=== PATIENT | female | born 1975 | race Caucasian/White ===

== ENCOUNTER 2016-05-16 09:26 | Emergency (ER) | payer BC ==
[2016-05-16 09:48] VITALS: BP 131/59
--- NOTE | 2016-05-16 10:18 | UC ---
Knee Pain HPI - HPI Summary HPI Summary: twisted right knee yesterday painful and swelling - History of Current Complaint Chief Complaint: UCLowerExtremity Stated Complaint: RIGHT KNEE INJURY Time Seen by Provider: 05/16/16 10:07 Hx Obtained From: Patient Hx Last Menstrual Period: 05/11/16 ?: No Onset/Duration: Sudden Onset, Lasting Days - 1, Still Present Severity Initially: Moderate Severity Currently: Mild Location Of Injury: 4 Pain Scale Used: 0-10 Numeric Character: Aching Aggravating Factor(s): Nothing - kneeling Alleviating Factor(s): Cold, OTC Meds Associated Signs And Symptoms: Positive: Negative Able to Bear Weight: Yes - Allergies/Home Medications Allergies/Adverse Reactions: Allergies Allergy/AdvReac Type Severity Reaction Status Date / Time Diphenhydramine Allergy Severe throat Verified 05/16/16 09:48 [From Benadryl] swelling PMH/Surg Hx/FS Hx/Imm Hx Previously Healthy: Yes - Surgical History Surgical History: Yes Surgery Procedure, Year, and Place: tonsillectomy 1992. sinus surgery x2 2004 and 2007. essure 05/2012 - Family History Known Family History: Positive: None Family History: no reported cardiovascular issues in family lineage - Social History Occupation: Employed Full-time Lives: With Family Alcohol Use: Rare Substance Use Type: None Smoking Status (MU): Never Smoked Tobacco Review of Systems Constitutional: Negative Skin: Negative Eyes: Negative ENT: Negative Respiratory: Negative Cardiovascular: Negative Gastrointestinal: Negative Genitourinary: Negative Motor: Negative Neurovascular: Negative Musculoskeletal: Arthralgia - right knee pain Neurological: Negative Psychological: Negative All Other Systems Reviewed And Are Negative: Yes Physical Exam Triage Information Reviewed: Yes Appearance: Well-Appearing, No Pain Distress, Well-Nourished Vital Signs: Initial Vital Signs Temp 98.0 F 05/16/16 09:46 Pulse 78 05/16/16 09:46 Resp 14 05/16/16 09:46 BP 131/59 05/16/16 09:46 Pulse Ox 100 05/16/16 09:46 Vital Signs Reviewed: Yes Eye Exam: Normal Eyes: Positive: Conjunctiva Clear ENT Exam: Normal ENT: Positive: Normal ENT inspection, Hearing grossly normal, TMs normal. Negative: Nasal congestion, Nasal drainage, Trismus, Muffled/hoarse voice Dental Exam: Normal Neck exam: Normal Neck: Positive: Supple, Nontender, No Lymphadenopathy Respiratory Exam: Normal Respiratory: Positive: Chest non-tender, Lungs clear, Normal breath sounds, No respiratory distress, No accessory muscle use Cardiovascular Exam: Normal Cardiovascular: Positive: RRR, No Murmur, Pulses Normal, Brisk Capillary Refill Abdominal Exam: Normal Musculoskeletal Exam: Normal Musculoskeletal: Positive: Strength Intact, ROM Intact, No Edema Neurological Exam: Normal Neurological: Positive: Alert, Muscle Tone Normal Psychological Exam: Normal Skin Exam: Normal Diagnostics - Radiology No standard instances Xray Interpretation: No Acute Changes Radiology Interpretation Completed By: Radiologist Knee Pain Course/Dx - Course Course Of Treatment: silvia knee immoblizer,rice,ibuprofen, Follow with Dr. Bear - Differential Dx/Diagnosis Differential Diagnosis/HQI/PQRI: Internal Derangement Of Knee, Sprain, Strain Provider Diagnoses: Right knee Strain Discharge - Discharge Plan Condition: Stable Disposition: HOME Patient Education Materials: Posterior Cruciate Ligament Injury (ED), Knee Immobilizer (ED), RICE Therapy (ED) Referrals: Christopher Womack MD [Primary Care Provider] - Stephanie Bear MD [Medical Doctor] - 5 Days
--- NOTE | 2016-05-16 10:38 | RAD ---
INDICATION: Right knee pain COMPARISON: None TECHNIQUE: AP, lateral, tunnel, and sunrise views were obtained. FINDINGS: The bony structures, joint spaces, and soft tissues are normal for age. IMPRESSION: NEGATIVE EXAMINATION.
== END 2016-05-16 11:20 | disposition home or self-care (01) ==
LOC: UCCORT 09:26
DX: S86.911A Strain of unspecified muscle(s) and tendon(s) at lower leg level, right leg, initial encounter (principal); X50.1XXA Overexertion from prolonged static or awkward postures, initial encounter; Y93.9 Activity, unspecified; Y92.9 Unspecified place or not applicable; Z88.8 Allergy status to other drugs, medicaments and biological substances
CPT/HCPCS: 99212; G0463

== ENCOUNTER 2016-07-28 18:32 | Emergency (ER) | payer BC ==
[2016-07-28 18:44] VITALS: BP 123/80
--- NOTE | 2016-07-28 19:14 | UC ---
Throat Pain/Nasal Mikhail HPI - HPI Summary HPI Summary: 9 days ago pt was eating a meal and starting choking group home through a bite of food. Describes it like when food or drink goes down "the wrong pipe," did not need a Heimlich maneuver and was able to make noise through the event. Reports about 5 minutes of continuous coughing afterward and a persistent sensation of swelling and a lump in her throat with swallowing or breathing. Has had a very frequent dry cough since the event. The day after the choking incident pt felt "feverish" and throat was sore, went to see PCP the next day and was placed on abx while awaiting a TBS. Is still taking amox, sx not improving. States she is able to eat and drink successfully and is not having trouble breathing aside from the feeling of a lump in her throat. - History of Current Complaint Chief Complaint: UCGeneralIllness Stated Complaint: SCRATCHY THROAT Time Seen by Provider: 07/28/16 18:47 Hx Obtained From: Patient Hx Last Menstrual Period: 07/28/16 ?: No Onset/Duration: Sudden Onset Severity: Mild Cough: Nonproductive Associated Signs & Symptoms: Positive: FB Sensation. Negative: Wheezing, Sinus Discomfort, Nasal Discharge, Fever, Vomiting - Allergies/Home Medications Allergies/Adverse Reactions: Allergies Allergy/AdvReac Type Severity Reaction Status Date / Time Diphenhydramine Allergy Severe throat Verified 07/28/16 18:44 [From Benadryl] swelling PMH/Surg Hx/FS Hx/Imm Hx Previously Healthy: Yes - Surgical History Surgical History: Yes Surgery Procedure, Year, and Place: tonsillectomy 1992. sinus surgery x2 2004 and 2007. essure 05/2012 - Family History Known Family History: Positive: None Family History: no reported cardiovascular issues in family lineage - Social History Lives: With Family Alcohol Use: Rare Substance Use Type: None Smoking Status (MU): Never Smoked Tobacco Review of Systems Constitutional: Negative Skin: Negative Eyes: Negative ENT: Sore Throat Respiratory: Negative Cardiovascular: Negative Gastrointestinal: Negative Genitourinary: Negative Motor: Negative Neurovascular: Negative Musculoskeletal: Negative Neurological: Negative Psychological: Negative All Other Systems Reviewed And Are Negative: Yes Physical Exam Triage Information Reviewed: Yes Appearance: Well-Appearing, No Pain Distress, Well-Nourished Vital Signs: Initial Vital Signs Temp 99.4 F 07/28/16 18:39 Pulse 77 07/28/16 18:39 Resp 16 07/28/16 18:39 BP 123/80 07/28/16 18:39 Pulse Ox 100 07/28/16 18:39 Vital Signs Reviewed: Yes Eye Exam: Normal Eyes: Positive: Conjunctiva Clear ENT: Positive: Normal ENT inspection, Hearing grossly normal, Pharynx normal, TMs normal. Negative: Tonsillar swelling, Tonsillar exudate Dental Exam: Normal Neck exam: Normal Neck: Positive: Supple, Nontender, No Lymphadenopathy Respiratory Exam: Normal Respiratory: Positive: Chest non-tender, Lungs clear, Normal breath sounds, No respiratory distress, No accessory muscle use Cardiovascular Exam: Normal Cardiovascular: Positive: RRR, No Murmur Musculoskeletal Exam: Normal Neurological Exam: Normal Neurological: Positive: Alert Psychological Exam: Normal Skin Exam: Normal Throat Pain/Nasal Course/Dx - Differential Dx/Diagnosis Provider Diagnoses: inflammation of upper airway and upper esophagus. globus sensation. elevated blood pressure due to discomfort Discharge - Discharge Plan Condition: Stable Disposition: HOME Prescriptions: Fluticasone HFA 110 mcg(NF) [Flovent HFA 110 mcg(NF)] 1 puff INH BID #1 mdi predniSONE TAB* [Deltasone TAB*] 40 mg PO DAILY #6 tab Patient Education Materials: Acute Cough (ED) Referrals: Christopher Womack MD [Primary Care Provider] - Additional Instructions: As we discussed, your coughing episode clearly caused some swelling and irritation in the top of your airway. Your ongoing coughing and feeling of swelling should go down within a couple days with steroid treatment. If you are not seeing improvement within about a week, please see your primary care office again. If you have actual problems with swallowing (such as choking, vomiting, unable to get food/liquids down) or breathing (like you need to be in a certain position in order to get air in and out), please go to the nearest emergency department. You can stop your antibiotic right now. If your symptoms resolve with medication, you should continue the inhaler for about a week after you feel better, then you can stop.
== END 2016-07-28 19:18 | disposition home or self-care (01) ==
LOC: UCCORT 18:32
DX: K20.9 Esophagitis, unspecified (principal); F45.8 Other somatoform disorders; R03.0 Elevated blood-pressure reading, without diagnosis of hypertension
CPT/HCPCS: 99212; G0463

== ENCOUNTER → 2017-05-25 09:20 | Day surgery (SDC) | payer BC ==
[~2017-05-25 09:20] MED LIST: Buffered Lidocaine 0.9% SYRIN* 5 ML/SYR SYRINGE INTRADERM ONE; Buffered Lidocaine 0.9% SYRIN* 5 ML/SYR SYRINGE ONE; Bupivacaine 0.5%* 50 ML VIAL ONE; Dexamethasone IV* 4 MG/ML 1 ML (4 MG) ONE; Famotidine TAB* 20 MG ONE; Famotidine TAB* 20 MG PO ONE; Ketorolac INJ* 30 MG/ML 1 ML VIAL ONE; Lidocaine 2% PF * 5 ML VIAL ONE; Lidocaine 2% PF* 10 ML AMP ONE; Metoclopramide TAB* 10 MG ONE; Metoclopramide TAB* 10 MG PO ONE; Midazolam* 1 MG/ML 2 ML VIAL (2 MG) ONE; Midazolam* 1 MG/ML 5 ML VIAL (5 MG) ONE; Naloxone* 0.4 MG/ML 1 ML VIAL IV PRN; Ondansetron INJ* 2 MG/ML VIAL IV PRN; Ondansetron INJ* 2 MG/ML VIAL ONE; Propofol* 10 MG/ML 20 ML BTL IV PUSH ONE; ceFAZolin 2 GM PREMIX (*) 2 GM/50 ML BAG IVPB ONE; fentaNYL* 50 MCG/ML 2 ML VIAL (100 MCG VIAL) IV PRN; fentaNYL* 50 MCG/ML 2 ML VIAL (100 MCG VIAL) ONE; oxyCODONE/Acetamin 5/325 MG* TAB PO PRN
[2017-05-25 13:15] VITALS: BP 115/78
--- NOTE | 2017-05-25 19:22 | RAD ---
INDICATION: Left foot bunion repair. COMPARISON: Comparison is made with a prior x-ray study of the left foot from March 11, 2017. TECHNIQUE: 1.27 of intermittent fluoroscopic guidance were provided and a single spot film of the left foot was obtained in the operating room. FINDINGS: There appears be a soft tissue surgical defect adjacent to the distal first metatarsal. There are small metallic linear densities which project adjacent to the distal first and second metatarsals. IMPRESSION: INTRAOPERATIVE CONTROL FILMS. CPT II Codes: G9500
--- NOTE | 2017-05-26 02:31 | OP ---
DATE OF OPERATION: 05/25/17 - [facility] DATE OF : 73 SURGEON: Casey Sin MD COMMERCIAL DIVER: Jael Stanley PA-C PRE-OP DIAGNOSIS: Left hallux valgus. POST-OP DIAGNOSIS: Left hallux valgus. OPERATIVE PROCEDURE: Repair of left hallux valgus with TightRope first and second metatarsal and modified Sanchez. DESCRIPTION OF PROCEDURE: Patient was taken to the operating room where longitudinal incision was made in the first and second dorsal webspace. The adductor tendon was reflected away from the lateral border of the sesamoid. Transverse metatarsal ligament also divided under direct vision. Small capsulotomy made above the sesamoid between that and the metatarsal. We then made a longitudinal medial incision over the medial eminence with dorsal and plantar flaps developed. Transverse capsulotomy made at the level of the joint and then extended proximally over the dorsum. This was reflected plantarward to allow visualization of the medial eminence, which was removed with microsagittal saw. We then passed a TightRope from the secondary metatarsal to the first metatarsal with the FiberWire suture. Stationary button was placed laterally and tied over tension at the medial aspect of the first metatarsal. We then resected the redundant capsule medially and closing the capsule with 2- 0 Vicryl interrupted sutures. X-rays intraoperatively showed closure of the IM angle, in satisfactory repair and placement of the MTP joint. Both wounds were then closed with 3-0 Monocryl and 4-0 nylon for the skin and a compression dressing applied. [id number]/[facility] #: [id number] MTDMarin
== END | disposition home or self-care (01) ==
LOC: OR 09:20
PROVIDERS: ATTEND Orthopaedic Surgery
DX: M20.12 Hallux valgus (acquired), left foot (principal); M25.561 Pain in right knee; K21.9 Gastro-esophageal reflux disease without esophagitis
CPT/HCPCS: 76000; A9270-GY; C1713; J0690; J1100; J1885; J2001; J2250; J2405; J2704; J3010; Q9965

== ENCOUNTER 2018-01-25 10:14 | Day surgery (SDC) | payer BC ==
[2018-01-25] MEDS ORDERED: ceFAZolin 2 GM PREMIX in ORs 2 GM/50 ML BAG IVPB ONE (11:15)
[2018-01-25] MEDS ORDERED: Lidocaine 2% PF * 5 ML VIAL ONE ×2 (11:48)
[2018-01-25] MEDS ORDERED: Propofol* 10 MG/ML 20 ML BTL ONE (11:48)
[2018-01-25] MEDS ORDERED: Chloroprocaine 2%* 20 ML VIAL ONE (11:48)
[2018-01-25] MEDS ORDERED: Bupivacaine 0.5% PF 10 ML VIAL INJ ONE (12:23)
[2018-01-25] MEDS ORDERED: Midazolam* 1 MG/ML 5 ML VIAL (5 MG) ONE (12:29)
[2018-01-25] MEDS ORDERED: fentaNYL* 50 MCG/ML 2 ML VIAL (100 MCG VIAL) ONE (12:58)
[2018-01-25] MEDS ORDERED: oxyCODONE TAB* 5 MG TAB PO PRN (13:21)
[2018-01-25] MEDS ORDERED: Acetaminophen TAB* 325 MG PO PRN (13:21)
[2018-01-25] MEDS ORDERED: fentaNYL* 50 MCG/ML 2 ML VIAL (100 MCG VIAL) IV PRN (13:21)
[2018-01-25] MEDS ORDERED: Ondansetron INJ* 2 MG/ML VIAL IV PRN (13:21)
[2018-01-25] MEDS ORDERED: Ketorolac INJ* 30 MG/ML 1 ML VIAL IV PRN (13:21)
[2018-01-25] MEDS ORDERED: Naloxone* 0.4 MG/ML 1 ML VIAL IV PRN (13:21)
[2018-01-25 15:02] VITALS: BP 132/99
--- NOTE | 2018-01-26 09:37 | OP ---
DATE OF OPERATION: 01/25/18 - [facility] DATE OF : 73 SURGEON: Casey Sin MD NIGHT TIME BABYSITTER: Jael Stanley PA-C PRE-OP DIAGNOSIS: Right hallux valgus deformity. POST-OP DIAGNOSIS: Right hallux valgus deformity. OPERATIVE PROCEDURE: Right hallux valgus repair. DESCRIPTION OF PROCEDURE: The patient was taken to the operating room where a longitudinal incision was made in the first webspace dorsally. We released the adductor tendon away from the lateral border of the fibular sesamoid as well as creating a dorsal capsulotomy at this level. We also exposed the lateral portion of this approach, 1 cm of the second metatarsal shaft. A medial longitudinal incision was made over the medial eminence with a longitudinal capsulotomy. We reflected the capsulotomy removing the medial eminence and then we drove the K wire for the mini TightRope from the medial portion of the first metatarsal just proximal with a capsulotomy through the center of the second metatarsal shaft. The FiberWire was brought through the second metatarsal shaft, snugging the button down to the medial first metatarsal. We closed the IM angle tightly, then manually and tied the TightRope over the lateral aspect of the second metatarsal. We then repaired the capsule with an imbrication using 0 Vicryl sutures. Both wounds closed and irrigated, closed with 3-0 Vicryl, 4-0 nylon and a compression dressing applied. [id number]/[facility] #: [id number] MTDD
== END 2018-01-25 15:04 | disposition home or self-care (01) ==
LOC: OR 10:14
PROVIDERS: ATTEND Orthopaedic Surgery
DX: M20.11 Hallux valgus (acquired), right foot (principal); G89.29 Other chronic pain
CPT/HCPCS: 81025; C1713; J0690; J2250; J2400; J2704; J3010

== ENCOUNTER 2018-06-14 10:44 | Day surgery (SDC) | payer BC ==
[~2018-06-14 10:44] MED LIST changes: -Buffered Lidocaine 0.9% SYRIN* 5 ML/SYR SYRINGE INTRADERM ONE; -Buffered Lidocaine 0.9% SYRIN* 5 ML/SYR SYRINGE ONE; +Buffered Lidocaine 1% SYRIN* 1 ML/SYRINGE INTRADERM ONE; -Bupivacaine 0.5%* 50 ML VIAL ONE; -Dexamethasone IV* 4 MG/ML 1 ML (4 MG) ONE; +Famotidine IV* 10 MG/ML 2 ML (20 mg) IV ONE; +Famotidine IV* 10 MG/ML 2 ML (20 mg) ONE; -Famotidine TAB* 20 MG ONE; -Famotidine TAB* 20 MG PO ONE; -Ketorolac INJ* 30 MG/ML 1 ML VIAL ONE; +Lactated Ringers 1000 ML Bag* 1,000 ML IV SCH; -Lidocaine 2% PF * 5 ML VIAL ONE; -Lidocaine 2% PF* 10 ML AMP ONE; -Metoclopramide TAB* 10 MG ONE; -Metoclopramide TAB* 10 MG PO ONE; -Midazolam* 1 MG/ML 2 ML VIAL (2 MG) ONE; -Midazolam* 1 MG/ML 5 ML VIAL (5 MG) ONE; -Naloxone* 0.4 MG/ML 1 ML VIAL IV PRN; -Ondansetron INJ* 2 MG/ML VIAL IV PRN; -Ondansetron INJ* 2 MG/ML VIAL ONE; -Propofol* 10 MG/ML 20 ML BTL IV PUSH ONE; -ceFAZolin 2 GM PREMIX (*) 2 GM/50 ML BAG IVPB ONE; -fentaNYL* 50 MCG/ML 2 ML VIAL (100 MCG VIAL) IV PRN; -fentaNYL* 50 MCG/ML 2 ML VIAL (100 MCG VIAL) ONE; -oxyCODONE/Acetamin 5/325 MG* TAB PO PRN
[2018-06-14] MEDS ORDERED: ceFAZolin 2 GM PREMIX in ORs 2 GM/50 ML BAG IVPB ONE (11:08)
[2018-06-14] MEDS ORDERED: Midazolam* 1 MG/ML 5 ML VIAL (5 MG) ONE (11:14)
[2018-06-14] MEDS ORDERED: fentaNYL* 50 MCG/ML 2 ML VIAL (100 MCG VIAL) ONE (11:14)
[2018-06-14] MEDS ORDERED: Lidocaine 1% MPF wEPI 200,000* 30 ML SDV ONE (12:09)
[2018-06-14] MEDS ORDERED: Ropivacaine* 2 MG/ML 20 ML VIAL (0.2%) ONE (12:09)
[2018-06-14] MEDS ORDERED: Lidocaine 2% PF * 5 ML VIAL ONE (12:49)
[2018-06-14] MEDS ORDERED: Ketorolac INJ* 30 MG/ML 1 ML VIAL ONE (12:49)
[2018-06-14] MEDS ORDERED: Dexamethasone IV* 4 MG/ML 1 ML (4 MG) ONE (12:49)
[2018-06-14] MEDS ORDERED: Ondansetron INJ* 2 MG/ML VIAL ONE (12:49)
[2018-06-14] MEDS ORDERED: Propofol* 10 MG/ML 20 ML BTL ONE (12:49)
[2018-06-14 14:46] VITALS: BP 116/75
--- NOTE | 2018-06-15 05:27 | OP ---
CC: PCP, Dr. Womack * DATE OF SURGERY: 06/14/18 - [facility] DATE OF : 73 SURGEON: Sugar Moreno MD. DRUM TENDER: SOCO Rosa student. ANESTHESIOLOGIST: Dr. Mao. ANESTHESIA: General. PRE-OP DIAGNOSIS: Right knee lateral meniscus tear with synovitis. POST-OP DIAGNOSIS: Right knee lateral meniscus tear with synovitis. OPERATIVE PROCEDURE: Right knee arthroscopy with medial partial lateral meniscectomy and synovectomy of the anterior and medial lateral compartments. COMPLICATIONS: None. ESTIMATED BLOOD LOSS: Minimal. INDICATIONS: Lilia Read is a 43-year-old female who has had persistent catching type of symptoms on the lateral aspect of the knee. She has failed conservative measures including physical therapy, antiinflammatories, injections. She elected to proceed with surgical treatment. Risks and benefits of surgery were discussed at length including, but not limited to, bleeding, infection, damage to nerves, vessels, surrounding structures, wound nonhealing, persistent pain, need for surgery, scarring, stiffness, incomplete relief of symptoms, and risks of anesthesia. DESCRIPTION OF PROCEDURE: The patient was greeted in the preoperative area by the attending surgeon. The correct extremity was marked and consent was confirmed. The patient was brought back to the operating suite where she was placed in the supine position on the operating table. She underwent general anesthesia and LMA intubation, after which she was appropriately positioned in the operating table, lateral post was positioned. An unsterile tourniquet was placed high on the right leg. The right leg was then prepped and draped in the usual sterile fashion beginning with chlorhexidine soap, scrub, and alcohol wipe and a final prep with ChloraPrep. After appropriate surgical pause indicating side, site, procedure, and administration of antibiotics, the knee was intra-articularly injected with 1% lidocaine. Anterolateral portal was made sharply with an 11-blade. The scope was introduced into the joint and was examined. There was abundant synovitis particularly laterally. The ACL and PCL were intact. The patellofemoral joint had grade 0-1 changes. There was synovitis present. The anteromedial portal was made in an outside-in fashion. Shaver was used to debride back the abundant synovitis particularly laterally based with a large lateral plica. Electrocautery device was also used to maintain hemostasis. The gutters were visualized and found to have no large loose debris. There were small amounts of small loose debris present. The medial compartment was examined. The medial femoral condyle had grade 0-1 changes. Medial plateau had grade 0-1 changes. The medial meniscus was stable in the back, but had an unstable fraying in the front anteriorly. This was debrided back using the shaver for the remainder of that meniscus tear. The knee was then placed in a figure-of- four position. The lateral meniscus had some fraying and tearing. The meniscus was probed and found to be intact with appropriate normal amount of give. The body had unstable fraying, which was debrided back. At this point, the synovectomy was done laterally carefully to remove the large plica that could have been rubbing on the side of her knee. There was a small area of grade 2 changes on the condyle from where this had been rubbing. Hemostasis was obtained at all times. The knee was then thoroughly lavaged and removed any loose debris. The wounds were copiously irrigated with sterile saline. The portals were closed with 3-0 Monocryl. Sterile dressings were applied, a Cryo/ Cuff and dressings were applied. She was awoken from anesthesia and transferred to PACU in stable condition. POSTOPERATIVE PLAN: She will be weightbearing as tolerated on crutches. She will be discharged on pain medications. DVT prophylaxis considered, but deferred due to no previous personal or family history. I will see the patient back in 10 to 14 days. [id number]/[facility] #: [id number] CELESTE
== END 2018-06-14 14:55 | disposition home or self-care (01) ==
LOC: OREAST 10:44
PROVIDERS: ATTEND Orthopaedic Surgery
DX: S83.281A Other tear of lateral meniscus, current injury, right knee, initial encounter (principal); M65.861 Other synovitis and tenosynovitis, right lower leg; K21.9 Gastro-esophageal reflux disease without esophagitis; X58.XXXA Exposure to other specified factors, initial encounter; Y92.9 Unspecified place or not applicable
CPT/HCPCS: 81025; J0690; J1100; J1885; J2001; J2250; J2405; J2704; J2795; J3010

== ENCOUNTER 2018-10-22 16:44 | Emergency (ER) | payer BC ==
--- OUTSIDE RECORDS SUMMARY | 2018-10-22 17:17 | XMS REPORT | Continuity of Care Document ---
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 Active Problems Provider Date Trochanteric bursitis Sugar Moreno MD Onset: 01/07/2018 Derangement of knee Sugar Moreno MD Onset: 01/07/2018 Current tear of lateral cartilage AND/OR meniscus Sugar Moreno MD Onset: of knee Anxiety state Onset: 07/16/2011 Depressive disorder Onset: 07/16/2011 Panic disorder without agoraphobia Onset: 07/16/2011 Allergic rhinitis Onset: 07/16/2011 Cough Onset: 05/31/2014 Acute upper respiratory infection Onset: 03/25/2012 Acute sinusitis Onset: 03/25/2012 Gastroesophageal reflux disease Onset: 03/25/2012 Labyrinthitis Onset: 03/25/2012 Sprain of lateral collateral ligament of knee Sugar Moreno MD Onset: 2018 Sprain of cruciate ligament of knee Sugar Moreno MD Onset: 10/15/2018 Knee joint ankylosis Sugar 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/2018 Social History Type Date Description Comments Sex Unknown ETOH Use Denies alcohol use Tobacco Use Reviewed: 08/13/16 Patient has never smoked Recreational Drug Use Denies Drug Use Smoking Status Reviewed: 10/15/18 Patient has never smoked Exercise Type/Frequency Exercises sporadically Tattoo/Piercing Pierced ears Allergies, Adverse Reactions, Alerts Active Allergies Reaction Severity Comments Date Benadryl Severe throat swelling 03/06/2017 Inactive Allergies NKDA 03/06/2017 Medications Active Medications SIG Qnty Indications Ordering Provider Date Ibuprofen 4 tabs by mouth as Unknown 200mg Tablets needed Esssential Oils Unknown Agilease 2 capsules by Unknown mouth daily History Medications Methylprednisolone 6 by mouth 21units M25.561 Sugar Moreno, 08/26/2018 - 4mg TBPK day 1, 5 by 08/29/2018 mouth day 2, 4 by mouth day 3, 3 by mouth day 4, 2 by mouth day 5, 1 by mouth day 6 Oxycodone-Acetaminophen 1 tabs by 14tabs Sugar Moreno, 06/14/2018 - 5-325mg mouth every MD 07/22/2018 Tablets 4-6 hours as needed for pain No Active Medications Unknown 06/03/2018 - 06/14/2018 Medications Administered in Office Medication SIG Qnty Indications Ordering Provider Date Celestone 3 mg and 3mg Chema Ovalle MD 04/29/2017 Injection Immunizations CPT Code Status Date Vaccine Lot # [id number] Given 12/06/2013 Influenza Virus 3Yrs & Over 51525 Given 10/20/2012 Influenza Virus 3Yrs & Over 45025 Given 06/20/2008 Tdap - Tetanus/Diptheria/Acellular Pertussis 62829 Given 06/16/2002 Measles Mumps And Rubella MMR 40460 Given 06/05/1975 Measles Mumps And Rubella MMR 55191 Refused 12/04/2017 Influenza Virus Vaccine, Quadrivalent, Split, Im Use 6-35mo Vital Signs Date Vital Result Comment 10/15/2018 8:34am Height 64 inches 5'4" Weight 165.00 lb Heart Rate 75 /min BP Systolic 140 mmHg BP Diastolic 78 mmHg Body Temperature 98.0 F Pain Level 7 BMI (Body Mass Index) 28.3 kg/m2 09/03/2018 8:05am Height 64 inches 5'4" Weight 165.00 lb BP Systolic 124 mmHg BP Diastolic 86 mmHg Respiratory Rate 14 /min Body Temperature 97.0 F Pain Level 3 BMI (Body Mass Index) 28.3 kg/m2 Results Description No Information Available Procedures Date Code Description Status 10/15/2018 36921 Inject/Drain Joint/Bursa Major W/O US Completed 06/14/2018 45573 Arthroscopy,Knee,Meniscectomy Media & Lateral Completed 06/14/2018 29109 Arthroscopy,Knee,Meniscectomy Media & Lateral Completed 06/01/2017 [id number] Mammogram Completed Medical Devices Description No Information Available Encounters Type Date Location Provider Dx Diagnosis Office Visit 09/03/2018 Orthopedic Sugar Moreno MD S83.281D Oth tear of lat 8:00a [facility], current injury, right knee, subs M24.661 Ankylosis, right knee Office Visit 06/23/2018 1:00p Orthopedic Casey M20.11 Hallux valgus [facility] M[facility] (acquired), right AT [place] foot Office Visit 06/03/2018 8:15a Orthopedic Sugar Moreno M70.61 Trochanteric [facility] bursitis, right [facility] hip S83.281A Oth tear of lat mensc, current injury, right knee, init Office Visit 05/10/2018 3:30p [facility] SAIDA Solorzano Z00.01 Encounter for general adult medical exam w abnormal findings N94.89 Oth cond assoc w female genital organs and menstrual cycle Z12.31 Encntr screen mammogram for malignant neoplasm of breast Assessments Date Code Description Provider 10/15/2018 S83.281D Other tear of lateral meniscus, current Sugar Moreno MD injury, right knee, 10/15/2018 M24.661 Ankylosis, right knee Sugar Moreno MD 09/03/2018 S83.281D Other tear of lateral meniscus, current Sugar Moreno MD injury, right knee, 09/03/2018 M24.661 Ankylosis, right knee Sugar Moreno MD 08/26/2018 M25.561 Pain in right knee Sugar Moreno MD 08/26/2018 S83.281D Other tear of lateral meniscus, current Sugar Moreno MD injury, right knee, 08/26/2018 S89.91xA Unspecified injury of right lower leg, Sugar Moreno MD initial encounter 08/26/2018 Z47.89 Encounter for other orthopedic aftercare Sugar Moreno MD 08/13/2018 M25.561 Pain in right knee Kymberly Castanon, RPA-C 07/23/2018 S83.281D Other tear of lateral meniscus, current Sugar Moreno MD injury, right knee, 07/23/2018 Z47.89 Encounter for other orthopedic aftercare Sugar Moreno MD 06/25/2018 S83.281D Other tear of lateral meniscus, current Sugar Moreno MD injury, right knee, 06/25/2018 R60.0 Localized edema Sugar Moreno MD 06/23/2018 M20.11 Hallux valgus (acquired), right foot Casey Sin M.D. 06/14/2018 M23.332 Other meniscus derangements, other medial Sugar Moreno MD meniscus, left knee 06/14/2018 M23.362 Other meniscus derangements, other lateral Sugar Moreno MD meniscus, left knee 06/03/2018 M70.61 Trochanteric bursitis, right hip Sugar Moreno MD 06/03/2018 S83.281A Other tear of lateral meniscus, current Sugar Moreno MD injury, right knee, 05/10/2018 Z00.01 Encounter for general adult medical SAIDA Solorzano examination with abnorma 05/10/2018 N94.89 Other specified conditions associated with SAIDA Solorzano female genital or 05/10/2018 Z12.31 Encounter for screening mammogram for SAIDA Solorzano malignant neoplasm of Plan of Treatment Future Appointment(s):11/02/2018 8:30 am - Sugar Moreno MD at [facility].10/15/2018 - Sugar Moreno MDS83.281D Other tear of lateral meniscus, current injury, right knee,Follow up:Follow up: 2-3 xnratN06.661 Ankylosis, right knee Functional Status Description No Information Available Mental Status Description No Information Available Referrals Description No Information Available
--- OUTSIDE RECORDS SUMMARY | 2018-10-22 17:17 | XMS REPORT | Continuity of Care Document ---
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 Problems Active Problems Provider Date Trochanteric bursitis [...] CPT Code Status Date Vaccine Lot # [id number] Given 12/06/2013 Influenza Virus 3Yrs & Over 96541 Given 10/20/2012 Influenza Virus 3Yrs & Over 52261 Given 06/20/2008 Tdap - Tetanus/Diptheria/Acellular Pertussis 60780 Given 06/16/2002 Measles Mumps And Rubella MMR 31843 Given 06/05/1975 Measles Mumps And Rubella MMR 36130 Refused 12/04/2017 Influenza Virus Vaccine, Quadrivalent, Split, [...] Available Procedures Date Code Description Status 10/15/2018 62677 Inject/Drain Joint/Bursa Major W/O US Completed 06/14/2018 25143 Arthroscopy,Knee,Meniscectomy Media & Lateral Completed 06/14/2018 67084 Arthroscopy,Knee,Meniscectomy Media & Lateral Completed 06/01/2017 [id number] Mammogram Completed Medical Devices Description No Information Available Encounters Type Date Location Provider Dx Diagnosis Office Visit 09/03/2018 Orthopedic Sugar Moreno MD S83.281D Oth tear of lat 8:00a [facility], current injury, right knee, subs M24.661 Ankylosis, right knee Office Visit 06/23/2018 1:00p [facility] M20.11 Hallux valgus [facility] (acquired), right AT [facility] Office Visit 06/03/2018 8:15a Orthopedic Sugar Moreno M70.61 Tro[facility] bursitis, right [facility] hip S83.281A Oth tear of lat mensc, current injury, right knee, init Office Visit 05/10/2018 3:30p [facility] SAIDA Solorzano Z00.01 Encounter for general adult medical exam w abnormal findings N94.89 Oth cond assoc w female genital organs and menstrual cycle Z12.31 Encntr screen mammogram for malignant neoplasm of breast Assessments Date Code Description Provider 10/15/2018 S83.281D Other tear of lateral meniscus, current Sguar Moreno MD injury, right knee, 10/15/2018 M24.661 [...] Unspecified injury of right lower leg, Sugar oMreno MD initial encounter 08/26/2018 Z47.89 Encounter for [...] Sugar Moreno MD at [facility].10/15/2018 - Sugar Moreno MDS83.281D Other tear of lateral meniscus, current injury, right knee,Follow up:Follow up: 2-3 wldqgZ76.661 Ankylosis, right knee Functional Status Description No Information Available Mental Status Description No Information Available Referrals Description No Information Available
[2018-10-22 17:31] VITALS: BP 124/94
--- NOTE | 2018-10-22 18:19 | UC ---
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 Pt feels its in both kidneys her pain. she denies any urinary s/s of frequency, urgency or burning with urination. Also denies any foul odor or blood in her urine. She is also c/o headache that she has had since September 09 that has been on/off. She indicates her pain as being in the frontal region of her head. Denies fever." -has h/o sinus surgery -head ache is specifially behind her eyes/eyebow line +recent stress w/ Dad being sick. heart stopped 5 da ago. he is coming home soon and getting pacemeaker. she was in the hospital w/ him 5 days ago and had to stand uncomfortably for a long period of time. she admits tjhat it wa suncomfirtable for her back b/c she had knee surgery in June and was uncomfortable standing straight. -no radiation into legs + numbing b/l arms and legs - she was prev on B12 and hasnt been on them. - History of Current Complaint Chief Complaint: UCBackPain Stated Complaint: URINARY Time Seen by Provider: 10/22/18 17:29 Hx Last Menstrual Period: 10/04/18 Pain Intensity: 6 - Allergy/Home Medications Allergies/Adverse Reactions: Allergies Allergy/AdvReac Type Severity Reaction Status Date / Time diphenhydramine Allergy Airway Verified 08/31/18 13:47 [From Benadryl] Obstruction PMH/Surg Hx/FS Hx/Imm Hx Previously Healthy: Yes - Surgical History Surgical History: Yes Surgery Procedure, Year, and Place: Tonsillectomy 1992. Sinus Surgery x2 2004 and 2007. [place] 05/2012. 2017 [place]ophageal [place] [place] 2018 [facility] RIGHT & LEFT FOOT [facility]. MENISCUS REPAIR RIGHT KNEE 06/14/18 - Family History Known Family History: Positive: Cardiac Disease - dad w/ heart block. Family History: no reported cardiovascular issues in family lineage - Social History Alcohol Use: Rare Alcohol Amount: VERY RARE MAYBE 3 DRINKS/YR Substance Use Type: None Smoking Status (MU): Never Smoked Tobacco Have You Smoked in the Last Year: No Household Exposure Type: Cigarettes Review of Systems All Other Systems Reviewed And Are Negative: Yes Constitutional: Positive: Fatigue Skin: Positive: Negative. Negative: Rash Eyes: Positive: Negative. Negative: Blurred Vision, Drainage, Eye Redness ENT: Positive: Sinus Pain/Tenderness - behind eyes - see above. Negative: Sore Throat, Ear Ache, Nasal Discharge Respiratory: Positive: Negative. Negative: Shortness Of Breath, Cough Cardiovascular: Positive: Negative. Negative: Palpitations, Chest Pain Gastrointestinal: Positive: Negative Genitourinary: Positive: Negative. Negative: Dysuria, Hematuria, Frequency, Urgency Motor: Positive: Negative Neurovascular: Positive: Negative Musculoskeletal: Positive: Negative Neurological: Positive: Numbness Psychological: Positive: Negative Physical Exam Triage Information Reviewed: Yes Appearance: Well-Appearing, No Pain Distress, Well-Nourished - very pleasant. 5 yr old girl here w./ her named Fabiola Vital Signs: Initial Vital Signs Temp 98.7 F 10/22/18 17:22 Pulse 81 10/22/18 17:22 Resp 20 10/22/18 17:22 BP 124/94 10/22/18 17:22 Pulse Ox 100 10/22/18 17:22 Eye Exam: Normal Eyes: Positive: Conjunctiva Clear ENT: Positive: TMs normal, Sinus tenderness - B/l frontal at eyebrow line and maxillary, narrow nose and nasal passageways. Negative: Pharyngeal erythema, Nasal congestion Dental Exam: Normal Neck exam: Normal Neck: Positive: Supple, Nontender, No Lymphadenopathy Respiratory Exam: Normal Respiratory: Positive: Chest non-tender, Lungs clear, Normal breath sounds, No respiratory distress. Negative: Crackles, Rhonchi, Stridor, Wheezing Cardiovascular Exam: Normal Cardiovascular: Positive: RRR, No Murmur Abdominal Exam: Normal Abdomen Description: Positive: Nontender, Soft Musculoskeletal: Positive: Strength Intact, ROM Intact, No Edema, Other: - B/l thoracic upper lumbar muscle spasms w/ repordicuble pain w/ palpation rt ? left. No CVAT. Neurological Exam: Normal Neurological: Positive: Alert Psychological Exam: Normal Psychological: Positive: Other: - appears mildly anxious Skin Exam: Normal Skin: Negative: Rashes Course/Dx - Course Course Of Treatment: b/l upper lumbar muscle spasms d/t prolonged standing at hospital w/ Dad 5 d ago. -sinusitis in pt w/ chronci sinusitis and sinus surgeruiies - amox x 10 d -probiotic -methocarbomol for night time -ibuprofen 600-800mgs prn for short course -UA nml - Differential Dx - Multi-Symptom Differential Diagnoses: Other - sinusitis, muscle spasm, UTI - Diagnoses Provider Diagnosis: Low back pain, Sinusitis Discharge ED - Sign-Out/Discharge Documenting (check all that apply): Patient Departure All imaging exams completed and their final reports reviewed: No Studies - Discharge Plan Condition: Stable Disposition: HOME Prescriptions: Amoxicillin PO (*) [Amoxicillin 875 MG (*)] 875 mg PO BID #20 tab Methocarbamol TAB* [Robaxin 500 MG TAB*] 500 mg PO DAILY PRN 10 Days #10 tab PRN Reason: Pain - Moderate Patient Education Materials: Sinusitis (ED), Muscle Spasm (ED) Referrals: Christopher Womack MD [Primary Care Provider] - 1 Week Additional Instructions: It is recommended that you take a priobiotic daily while you are on antibiotics. A few common brands that you can buy over the counter are colon health, align and florastor. These can help prevent a colon infection called c diff that can be associated with antibiotic use. -You can take ibuprofen 600-800mgs every 8 hrs for short period of time (7-10 max) for pain in your back. - Billing Disposition and Condition Condition: STABLE Disposition: Home
--- NOTE | 2018-11-01 14:02 | UC ---
- Progress Note Progress Note: pt request diflucan for vag yeast infection eRxed Course/Dx - Diagnoses Provider Diagnoses: Low back pain, Sinusitis Discharge ED - Sign-Out/Discharge Documenting (check all that apply): Post-Discharge Follow Up All imaging exams completed and their final reports reviewed: No Studies - Discharge Plan Condition: Stable Disposition: HOME Prescriptions: Amoxicillin PO (*) [Amoxicillin 875 MG (*)] 875 mg PO BID #20 tab Fluconazole 150 MG (NF) [Diflucan 150 mg (NF)] 150 mg PO ONCE #1 tab Methocarbamol TAB* [Robaxin 500 MG TAB*] 500 mg PO DAILY PRN 10 Days #10 tab PRN Reason: Pain - Moderate Patient Education Materials: Sinusitis (ED), Muscle Spasm (ED) Referrals: Christopher Womack MD [Primary Care Provider] - 1 Week Additional Instructions: It is recommended that you take a priobiotic daily while you are on antibiotics. A few common brands that you can buy over the counter are colon health, align and florastor. These can help prevent a colon infection called c diff that can be associated with antibiotic use. -You can take ibuprofen 600-800mgs every 8 hrs for short period of time (7-10 max) for pain in your back. - Billing Disposition and Condition Condition: STABLE Disposition: Home
== END 2018-10-22 18:42 | disposition home or self-care (01) ==
LOC: UCCORT 16:44
DX: M54.5 Low back pain (principal); J32.9 Chronic sinusitis, unspecified; R20.0 Anesthesia of skin; R53.83 Other fatigue; Z88.8 Allergy status to other drugs, medicaments and biological substances
CPT/HCPCS: 81003; 99212; G0463

== ENCOUNTER 2019-04-13 05:33 | Observation (INO) | payer BC ==
[~2019-04-13 05:33] MED LIST changes: -Famotidine IV* 10 MG/ML 2 ML (20 mg) IV ONE; -Famotidine IV* 10 MG/ML 2 ML (20 mg) ONE; -Lactated Ringers 1000 ML Bag* 1,000 ML IV SCH
[2019-04-13] MEDS ORDERED: Lactated Ringers 1000 ML Bag* 1,000 ML IV SCH ×2 (06:00→11:00)
[2019-04-13] MEDS ORDERED: ceFAZolin 2 GM in NS PREMIX(*) 2 GM/100 ML BAG IVPB ONE (06:37)
[2019-04-13] MEDS ORDERED: Buffered Lidocaine 1% SYRIN* 1 ML/SYRINGE INTRADERM ONE (06:37)
[2019-04-13] MEDS ORDERED: Bupivacaine 0.5% W/EPI SDV* 30 ML VIAL ONE (07:13)
[2019-04-13] MEDS ORDERED: Succinylcholine* 20 MG/ML 10 ML VIAL ONE (07:20)
[2019-04-13] MEDS ORDERED: Lidocaine 2% PF * 5 ML VIAL ONE (07:20)
[2019-04-13] MEDS ORDERED: Propofol* 10 MG/ML 20 ML BTL ONE (07:20)
[2019-04-13] MEDS ORDERED: Midazolam* 1 MG/ML 2 ML VIAL (2 MG) ONE (07:20)
[2019-04-13] MEDS ORDERED: fentaNYL* 50 MCG/ML 2 ML VIAL (100 MCG VIAL) ONE ×2 (07:20→10:43)
[2019-04-13] MEDS ORDERED: Rocuronium* 10 MG/ML VIAL ONE ×2 (07:20→09:09)
[2019-04-13] MEDS ORDERED: Phenylephrine 40 MCG/ML SYRINGE ONE (07:47)
[2019-04-13] MEDS ORDERED: Ondansetron INJ* 2 MG/ML VIAL ONE (08:07)
[2019-04-13] MEDS ORDERED: Metoclopramide IV* 5 MG/ML 2 ML VIAL ONE (08:07)
[2019-04-13] MEDS ORDERED: Dexamethasone IV* 4 MG/ML 1 ML (4 MG) ONE (08:07)
[2019-04-13] MEDS ORDERED: Ketorolac INJ* 30 MG/ML 1 ML VIAL ONE (08:07)
[2019-04-13] MEDS ORDERED: oxyCODONE TAB* 5 MG TAB PO PRN (08:16)
[2019-04-13] MEDS ORDERED: Naloxone* 0.4 MG/ML 1 ML VIAL IV PRN (08:16)
[2019-04-13] MEDS ORDERED: DiMENhydriNATE IV* 50 MG/ML VIAL IV PUSH PRN (08:16)
[2019-04-13] MEDS ORDERED: Sugammadex * 200 MG/2 ML VIAL IV PUSH ONE (09:25)
[2019-04-13] MEDS ORDERED: Ondansetron INJ* 2 MG/ML VIAL IV PRN (10:03)
[2019-04-13] MEDS ORDERED: Simethicone TAB* 80 MG TAB.CHEW PO PRN (10:09)
[2019-04-13] MEDS: fentaNYL* 50 MCG/ML 2 ML VIAL (100 MCG VIAL) IV PRN ×2 (10:45→11:15)
[2019-04-13] MEDS: Ibuprofen TAB* 600 MG PO PRN (14:23)
[2019-04-13] MEDS: oxyCODONE/Acetamin 5/325 MG* TAB PO PRN ×3 (15:23→23:53)
[2019-04-13] MEDS: Docusate CAP* 100 MG PO PRN (23:53)
[2019-04-14] MEDS: Ibuprofen TAB* 600 MG PO PRN ×2 (03:10→13:30)
[2019-04-14] MEDS: oxyCODONE/Acetamin 5/325 MG* TAB PO PRN ×2 (04:26→09:16)
[2019-04-14 06:23] LABS: ABS Eosinophils 0.1 10^3/ul (0-0.6); ABS Lymphocytes 2.4 10^3/ul (1.0-4.8); ABS Monocytes 0.8 10^3/ul (0-0.8); ABS Neutrophils 7.4 10^3/ul (1.5-7.7); Eosinophil % 1.1 %; Hematocrit 35 % (35-47); Hemoglobin 12.1 g/dL (12.0-16.0); Lymphocyte % 22.1 %; Mean Corpuscular HGB Conc 34 g/dL (31-36); Mean Corpuscular Hemoglobin 30 pg (27-31); Mean Corpuscular Volume 89 fL (80-97); Mean Platelet Volume 8.9 fL (7.4-10.4); Platelet Count 281 10^3/uL (150-450); Red Blood Count 3.99 10^6 /uL (3.70-4.87); Red Cell Distribution Width 14 % (10-15); White Blood Count 10.7 10^3/uL (3.5-10.8)
[2019-04-14] MEDS: Docusate CAP* 100 MG PO PRN (07:43)
--- NOTE | 2019-04-14 09:37 | PN ---
Progress Note - Progress Note Date of Service: 04/14/19 SOAP: Subjective: [Patient is post laparoscopic supracervical hysterectomy bilateral salpingectomy. She is comfortable, tolerating regular diet, denies GI, urinary symptoms, denies chest pain, shortness of breath. Passing flatus.] Objective: [ Vital Signs Temp Pulse Resp BP Pulse Ox 97.5 F 80 18 118/68 100 04/14/19 07:54 04/14/19 08:24 04/14/19 09:16 04/14/19 09:19 04/14/19 08:00 Laboratory Results - last 24 hr 04/14/19 05:47 WBC 10.7 RBC 3.99 Hgb 12.1 Hct 35 MCV 89 MCH 30 MCHC 34 RDW 14 Plt Count 281 MPV 8.9 Neut % (Auto) 69.1 Lymph % (Auto) 22.1 [place] % (Auto) 7.5 Eos % (Auto) 1.1 Baso % (Auto) 0.2 Absolute Neuts (auto) 7.4 Absolute Lymphs (auto) 2.4 Absolute Monos (auto) 0.8 Absolute Eos (auto) 0.1 Absolute Basos (auto) 0.0 Absolute Nucleated RBC 0.0 Nucleated RBC % 0.0 Lungs CTA b/l CV RRR Abdomen soft, not tender, normal bowel sounds, laparoscopic incisions are clean/ dry/intact with no discharge or erythema.] Assessment: [Stable, normal post op recovery] Plan: [Discharge home, f/u in 1 week at my office.]
[2019-04-14 11:43] VITALS: BP 131/74
== END 2019-04-14 14:15 | disposition home or self-care (01) ==
LOC: OR 05:33 → SSU 10:04
PROVIDERS: ADMIT Obstetrics & Gynecology; ATTEND Obstetrics & Gynecology
DX: N92.1 Excessive and frequent menstruation with irregular cycle (principal); K21.9 Gastro-esophageal reflux disease without esophagitis; F32.9 Major depressive disorder, single episode, unspecified; F41.9 Anxiety disorder, unspecified; Z88.8 Allergy status to other drugs, medicaments and biological substances
CPT/HCPCS: 36415; 85025; 88307; 96361; 96374; 96376; A9270-GY; G0378; J0330; J0690; J1100; J1885; J2250; J2405; J2704; J2765; J3010